=== PATIENT | female | born 2000 | race African-American/Black ===

== ENCOUNTER 2018-10-26 07:39 | Emergency (ER) | payer OTHER ==
[~2018-10-26] VITALS: Ht 165.1 cm; Wt 56.8 kg
[2018-10-26] MEDS ORDERED: PREN29TA4 PO (07:49)
[2018-10-26 08:32] LABS: BASO % 0.5 % (0.0-1.0); EOS # 0.1 10^3/uL (0.0-0.50); EOS % 1.2 % (0.0-3.0); HEMATOCRIT 33.9 % (36.0-47.0); HEMOGLOBIN 11.3 g/dl (12.0-15.5); LYMPH # 1.8 10^3/uL (1.5-6.5); LYMPH % 27.5 % (24.0-44.0); MEAN CORPUSCULAR HEMOGLOBIN 28.4 pg (27.0-33.0); MEAN CORPUSCULAR HGB CONC 33.3 g/dl (32.0-36.5); MEAN CORPUSCULAR VOLUME 85.2 fl (80.0-96.0); MONO # 0.5 10^3/uL (0.0-0.8); MONO % 7.6 % (0.0-5.0); NEUTROPHILS # 4.1 10^3/uL (1.8-7.7); NEUTROPHILS % 62.6 % (36.0-66.0); PLATELET COUNT, AUTOMATED 217 10^3/uL (150-450); RED BLOOD COUNT 3.98 10^6/uL (4.00-5.40); WHITE BLOOD COUNT 6.5 10^3/uL (4.0-10.0)
[2018-10-26 09:14] LABS: ALBUMIN 3.1 GM/DL (3.2-5.2); ALT/SGPT 12 U/L (12-78); BILIRUBIN,DIRECT 0.1 MG/DL (0.0-0.2); BILIRUBIN,TOTAL 0.4 MG/DL (0.2-1.0); BLOOD UREA NITROGEN 6 MG/DL (7-18); CALCIUM LEVEL 8.7 MG/DL (8.5-10.1); CARBON DIOXIDE LEVEL 26 MEQ/L (21-32); CHLORIDE LEVEL 107 MEQ/L (98-107); CREATININE FOR GFR 0.73 MG/DL (0.55-1.30); GLUCOSE, FASTING 80 MG/DL (70-100); HCG, SERUM QUANTITATIVE 64772 MIU/ML; LIPASE 62 U/L (73-393); POTASSIUM SERUM 3.7 MEQ/L (3.5-5.1); SODIUM LEVEL 138 MEQ/L (136-145); TOTAL PROTEIN 6.7 GM/DL (6.4-8.2)
--- NOTE | 2018-10-26 09:59 | REP ---
Limited abdominal ultrasound for free fluid: All four quadrants of the abdomen are evaluated. No free fluid is identified. Impression: No abdominal free fluid is identified by ultrasound Electronically Signed by Maury Miller MD 10/26/2018 09:50 A
--- NOTE | 2018-10-26 10:04 | REP ---
First trimester obstetric ultrasound for trauma: The studies performed transabdominal and endovaginal ultrasound assessment: There is an intrauterine gestational sac with a pole. The heart rate is 163 beats per minute. The pole crown-rump length is 4.1 cm. This corresponds to the a gestation is 11 weeks 0 days/ANTHONY 05/17/2019. Gestational age by LMP is 10 weeks 4 days/ANTHONY of 05/20/2019. There is no subchorionic hematoma. The maternal adnexa and cul-de-sac are unremarkable. There is no free fluid. The cervix measures 5.0 cm length and is closed. Electronically Signed by Maury Miller MD 10/26/2018 09:55 A
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
--- NOTE | 2018-10-26 10:14 | REP ---
Clinical: Trauma. Pain. Technique: AP and lateral views of the lumbosacral spine. Findings: Alignment and lordosis maintained. Vertebral bodies are intact. No acute fracture / compression injury or subluxation. Impression: No acute fracture / compression injury or subluxation. Electronically Signed by Robert Abdalla MD 10/26/2018 10:05 A
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
[2018-10-26 15:28] VITALS: BP 81/48
== END 2018-10-26 15:38 | disposition home or self-care (01) ==
LOC: EDBD 07:39 → M ED 07:39
DX: O9A.219 Injury, poisoning and certain other consequences of external causes complicating pregnancy, unspecified trimester (principal); V49.40XA Driver injured in collision with unspecified motor vehicles in traffic accident, initial encounter; S30.0XXA Contusion of lower back and pelvis, initial encounter; S70.02XA Contusion of left hip, initial encounter; Y92.410 Unspecified street and highway as the place of occurrence of the external cause; Z3A.11 11 weeks gestation of pregnancy

== ENCOUNTER 2018-12-16 23:04 | Emergency (ER) | payer OTHER ==
[~2018-12-16] VITALS: Ht 165.1 cm; Wt 56.8 kg
[~2018-12-16 23:04] MED LIST: PREN29TA4 PO
[2018-12-16 23:05] VITALS: BP 110/62
== END 2018-12-17 02:57 | disposition left against medical advice (07) ==
LOC: M ED 23:04
DX: Z53.21 Procedure and treatment not carried out due to patient leaving prior to being seen by health care provider (principal)

== ENCOUNTER 2019-03-10 15:51 | Emergency (ER) | payer OTHER ==
[~2019-03-10] VITALS: Ht 165.1 cm; Wt 59.1 kg
[2019-03-10 16:43] VITALS: BP 109/57
[2019-03-10] MEDS ORDERED: MAPA500T2 PO (17:24)
== END 2019-03-10 16:48 | disposition admitted as inpatient to this hospital (09) ==
LOC: M ED 15:51
DX: S30.0XXA Contusion of lower back and pelvis, initial encounter (principal); W10.9XXA Fall (on) (from) unspecified stairs and steps, initial encounter; Y92.099 Unspecified place in other non-institutional residence as the place of occurrence of the external cause; Y93.89 Activity, other specified; Y99.9 Unspecified external cause status; O36.8130 Decreased fetal movements, third trimester, not applicable or unspecified; Z3A.30 30 weeks gestation of pregnancy; Z79.899 Other long term (current) drug therapy

== ENCOUNTER 2019-03-10 16:50 | Outpatient (CLI) | payer OTHER ==
[~2019-03-10] VITALS: Ht 165.1 cm; Wt 59.6 kg
[2019-03-10 17:19] VITALS: BP 92/51
[2019-03-10] MEDS ORDERED: MAPA500T2 PO (17:24)
--- NOTE | 2019-03-10 20:24 | IPNPDOC ---
Text Note Date of Service The patient was seen on 03/10/19. 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 she went to ED to be evaluated and found to have coccyx contusion. she was sent to l&d for continued monitoring. she did not She denies cramping/vb. +FM. vitals: normal NAD back: no lesion, nt abd: nd, soft, nt, gravid le: no edema/erythema/tenderness fht: 135/mod oskar/pos accel/no decel. toco: quiet a/p patient is a 18 yo @ 29+6wks gestation s/p fall. monitored for 5 hrs after she feel. no concern at this time. return precautions given. f/u with regular clinic as scheduled. DO carmenza VS,Raman, I+O VS, Fishbone, I+O Vital Signs Date Time Temp Pulse Resp B/P (MAP) Pulse Ox O2 Delivery O2 Flow Rate FiO2 03/10/19 17:19 98.0 80 16 92/51 (65) SOCORRO CLAYTON DO Mar 10, 2019 20:23
== END 2019-03-10 20:20 | disposition home or self-care (01) ==
LOC: M LDO 16:50
PROVIDERS: ATTEND Obstetrics & Gynecology
DX: O99.89 Other specified diseases and conditions complicating pregnancy, childbirth and the puerperium (principal); Z3A.29 29 weeks gestation of pregnancy; W10.8XXA Fall (on) (from) other stairs and steps, initial encounter; Y92.89 Other specified places as the place of occurrence of the external cause; S30.0XXA Contusion of lower back and pelvis, initial encounter; Y93.89 Activity, other specified; Y99.9 Unspecified external cause status; O36.8130 Decreased fetal movements, third trimester, not applicable or unspecified; Z79.899 Other long term (current) drug therapy
CPT/HCPCS: 59025; 85460; 99283; G0378; G0463

== ENCOUNTER 2019-05-07 11:33 | Inpatient (IN) | payer OTHER ==
[2019-05-07] VITALS (15 sets, daily range): BP systolic 113–128; BP diastolic 58–81
[~2019-05-07] VITALS: Ht 165.1 cm; Wt 67.6 kg
[~2019-05-07 11:33] MED LIST changes: +MAPA500T2 PO
[2019-05-07] MEDS ORDERED: LACTATED RINGER'S 1000 ML IV ONE (12:30)
[2019-05-07] MEDS: LR 1,000 ML IV SCH ×2 (12:36→19:05)
[2019-05-07 12:45] LABS: HEMATOCRIT 40.3 % (36.0-47.0); HEMOGLOBIN 12.4 g/dl (12.0-15.5); MEAN CORPUSCULAR HEMOGLOBIN 26.7 pg (27.0-33.0); MEAN CORPUSCULAR HGB CONC 30.8 g/dl (32.0-36.5); MEAN CORPUSCULAR VOLUME 86.9 fl (80.0-96.0); PLATELET COUNT, AUTOMATED 197 10^3/uL (150-450); RED BLOOD COUNT 4.64 10^6/uL (4.00-5.40); WHITE BLOOD COUNT 8.8 10^3/uL (4.0-10.0)
[2019-05-07] MEDS ORDERED: OXYTOCIN DRIP 30 UNITS in IV 1 EA IV SCH (18:15)
[2019-05-07] MEDS ORDERED: FENTANYL 2MCG/ML ROPIVACAINE 0.2% IN 0.9% NACL 100ML IVBAG As Ordered ONE (23:47)
[2019-05-08] VITALS (87 sets, daily range): BP systolic 94–137; BP diastolic 50–82
[2019-05-08] MEDS ORDERED: ePHEDrine SULFATE 25 MG/5 ML(5MG/ML) SYRINGE As Ordered ONE (01:16)
[2019-05-08] MEDS ORDERED: diphenhydrAMINE INJ 50MG/ML VIAL (J1200) IV PRN (01:30)
[2019-05-08] MEDS ORDERED: NALOXONE INJ 0.4 MG/1 ML VIAL (J2310) IV PRN (01:30)
[2019-05-08] MEDS ORDERED: ONDANSETRON 4MG/2ML VIAL (J2405) IV PRN (01:30)
[2019-05-08] MEDS ORDERED: EPIDURAL/PCA KEYS XX PRN (01:30)
[2019-05-08] MEDS ORDERED: ePHEDrine SULFATE 25 MG/5 ML(5MG/ML) SYRINGE IV PRN (01:30)
[2019-05-08] MEDS ORDERED: LACTATED RINGER'S 1000 ML IV PRN (01:30)
[2019-05-08] MEDS ORDERED: REFRIGERATOR IV KEYS XX PRN (01:30)
[2019-05-08] MEDS ORDERED: EPIDURAL COMMENT XX SCH (01:30)
[2019-05-08] MEDS: FENTANYL/ROPIVACAINE/NACL BAG 100 ML EPIDURAL SCH ×3 (08:43→20:32)
--- NOTE | 2019-05-08 11:11 | IPNPDOC ---
Text Note Date of Service The patient was seen on 05/08/19. NOTE Intrapartum Note I assumed care of Melissa at 0730 this morning. In brief, she is a 19yo with SIUP at 38w2d who was admitted by Dr. Soni for bleeding with friable cervix, 80/-2 on admission. She has been augmented with pitocin. Had AROM earlier this morning that was clear. Pitocin at most 8mu but titrated down frequently when tachysystole develops. Vitals wnl. Cat I FHRT with bl 140's, +accels, -decels, mod oskar Ctx q4-5min SCE 80/-1, bladder jackson bulb pushed up to allow head to descend, bloody show noted Will continue to titrate pitocin per protocol Will continue to closely observe Recheck in 2-4hr Safe to proceed Dr. Namrata Hood MD VS,Raman, I+O VS, Raman I+O Laboratory Tests 05/07/19 12:28 Vital Signs Date Time Temp Pulse Resp B/P (MAP) Pulse Ox O2 Delivery O2 Flow Rate FiO2 05/08/19 07:07 75 116/73 (87) 05/08/19 06:07 98.7 18 I&O- Last 24 Hours up to 6 AM 05/08/19 06:00 Intake Total 793 ml Output Total 1000 ml Balance -207 ml Namrata Hood MD May 08, 2019 10:27
--- NOTE | 2019-05-08 11:32 | IPN ---
DATE OF SERVICE: 05/07/2019 at 1800 hours This lady is a 1, para 0, who was admitted with vaginal bleeding at 38+ weeks of gestation. Known to have a friable cervix. She had a moderate amount of bleeding. She has been having contractions about 5-7 minutes apart. The intensity is mild to moderate. There are intermittent painful contractions. We deferred digital examination because of the vaginal bleeding. She has been up and about several times with no evidence of active bleeding to date. Our plan of management is to augment with Pitocin and reevaluate in 2 hours time. We have a category one strip. Blood pressure is 115/66, respirations 18, pulse 84, and temperature is 98.6. We discussed the plan of care with the patient. She expresses understanding. Safe to proceed.
--- NOTE | 2019-05-08 11:34 | HPE ---
DATE OF ADMISSION: 05/07/2019 19-year-old, 1, para 0, last menstrual period (LMP) 05/15/2018, estimated date of confinement (EDC) 05/20/2017 at 38 and 1 weeks of gestation, history of contractions and moderate vaginal bleeding from a very friable cervix as noted previously. Labs are A+, HIV negative, hepatitis negative, RPR negative, rubella immune. Varicella immune. Urine negative. Gonorrhea and chlamydia negative. 1-hour glucose 94. GBS is negative. Blood pressure 92/51, respirations are 20, pulse 80, and temperature 98.0. PHYSICAL EXAMINATION: Moderate amount of bleeding from the vagina either dark or bright red. Symphysis fundus height is 38, vertex presenting. Four quadrant bowel sounds are noted. Digital examination moderate significant amount of bleeding. Cervix is very posterior, 1 cm, very friable cervix was noted, vertex bulging membranes, -3 station. The rest of the examination unremarkable. Normocephalic, atraumatic. Neck full range of motion. Pupils equal and reactive to light. Distal pulses are symmetric. No evidence of deep venous thrombosis (DVT), pulmonary embolism (PE), or superficial phlebitis. Chest is clear bilaterally bases. No wheezes or rhonchi. No costovertebral angle (CVA) tenderness. Abdomen is soft. There is mention of quadrant bowel sounds are noted. She has no rashes, lesions or pruritus. No arthralgia, myalgia. No complaint joint pain. No complaint of cough, wheeze, shortness breath, dyspnea on exertion. No infections. She has no bruising. She is bleeding at present time and has had intermittent bleeding throughout the because of the cervix. She is normocephalic. No incontinency, urgency or frequency. No nausea, vomiting, diarrhea or constipation. No heat or cold insensitivity. No diabetic issues. She has no recorded Pap smear. No evidence of sexually transmitted diseases (STDs). Past medical-surgical is unremarkable. Family history noncontributory. Does not smoke, drink, abuse drugs. . No domestic violence. Good support systems. In consent for vaginal delivery we discussed the fact the baby's possible delivery through the vagina, possibly use a vacuum with forceps if needed, for maternal and indications forceps with vacuum device can assist with vaginal pushing if normal efforts cannot achieve vaginal delivery of their own or emergency for the baby's well-being. Medications may be used to induce or augment labor in order achieve vaginal a delivery, episiotomy may be required to help baby deliver vaginally, you may also require repair of any lacerations or tears of the vagina and the vulva that are caused by delivery, in some cases emergencies can arise that require emergency section were discussed by the provider because they are done related to medical, or maternal indications. section delivery through baby through an incision on the abdomen before they proceed and this may be safer for the baby than continuing labor and only perform if clinically indicated reasons. Risks of vaginal delivery include not limited to bleeding, infection, injury to the vagina, pelvic structures, injury to baby, damage to the uterus, reaction to anesthesia, uterine rupture, risk of hysterectomy for life-threatening bleeding, medications used to augment or induce labor may increase the risk of infection, uterine tachysystole, uterine rupture, heart rate abnormalities, need for emergency section or possible and hysterectomy with hemorrhage. Additional risks for forceps and vacuums include scratches, hematomas of the head, intracranial bleed. In specific to yourself because of such a friable cervix at delivery there may be required extensive repair of the cervix and if possibly not able to control the bleeding. This is a remote possibility of requiring hysterectomy because of intractable bleeding and inability to stop the bleeding because of the extreme friability of the cervix. The patient expressed understanding, had all questions answered, 30 minute discussion, and we are safe to proceed.
--- NOTE | 2019-05-08 13:06 | IPN ---
DATE: 05/07/2019 This is a 19-year-old, 1, who was admitted with active labor and bleeding from her friable cervix. She has an epidural in place. Pitocin is running. Category one strip. Blood pressure 137/68, heart rate is 86 and she is afebrile. On examination, she is 4 cm dilated with a minimal amount of spotting at the present time and bulging membranes. Artificial rupture of membranes (AROM) was done. The baby is occiput transverse (OT). Clear liquid, moderate amount. The patient is getting satisfactory pain relief from her epidural.
--- NOTE | 2019-05-08 13:51 | IPN ---
DATE: 05/07/2019 This is a 19-year-old, 1, who came in [place] at 38 and 1 weeks of gestation with moderate vaginal bleeding secondary to a very friable cervix. She eventually got into active labor, required augmentation with Pitocin and is presently 5-6 cm. Bleeding has subsided. Category one strip at the present time. At 0700, she was 5-6, well applied and Pitocin had to be reduced from 8 to 2 and now we are increasing the Pitocin with the baby with good variability. We anticipate appropriate progress from here. Blood pressure presently is 116/73, respirations 18, pulse 75 and she is afebrile.
[2019-05-08 16:45] LABS: CORD GAS ABE V -3.8; CORD GAS HCO3 V 22.2 MEQ/L; CORD GAS O2 SAT V 64.8 %; CORD GAS PCO2 V 43.6 mmHg; CORD GAS PH V 7.324 UNITS; CORD GAS SBC V 20.6 MEQ/L; CORD GAS TCO2 V 23.5 MEQ/L
[2019-05-08] MEDS ORDERED: OXYTOCIN DRIP 30 UNITS in IV 1 EA IV SCH (17:28)
[2019-05-08] MEDS ORDERED: DIBUCAINE 1% OINTMENT 30GM TOP PRN (17:30)
[2019-05-08] MEDS ORDERED: IBUPROFEN 600 MG TAB PO PRN (17:30)
[2019-05-08] MEDS ORDERED: RHOGAM 300 MCG (1500 IU) INJ (J2790) IM SCH (17:30)
[2019-05-08] MEDS ORDERED: ACETAMINOPHEN TAB 650MG DOSE (2X325MG) PO PRN (17:30)
[2019-05-08] MEDS ORDERED: IBUPROFEN 800 MG TAB PO PRN (17:30)
[2019-05-08] MEDS ORDERED: DOCUSATE SODIUM 100 MG CAP PO PRN (17:30)
[2019-05-08] MEDS ORDERED: MEASLES,MUMPS,RUBELLA VACCINE INJ (MMR-II) (90707) SC SCH (17:30)
--- NOTE | 2019-05-08 18:08 | DNPDOC ---
[facility] Delivery Note Delivery Note DATE OF DELIVERY: 05/08/2019 PREDELIVERY DIAGNOSIS: 38w2d gestation POST DELIVERY DIAGNOSIS: Delivered. PROCEDURE: Spontaneous vaginal delivery TELEHEALTH CASE MANAGER: Dr. Namrata Hood MD ANESTHESIA: epidural ESTIMATED BLOOD LOSS: 300 mL. FINDINGS: 7 pound 3 ounce (male) , Score 8/9, has a left ear abnormality that was not diagnosed prior to delivery DELIVERY SUMMARY: Melissa is a 19yo [id number] s/p uncomplicated at 1628 on 05/08/2019 after undergoing IOL for friable cervix with large blood vessels at 38w2d. She progressed from 2cm to complete with pitocin augmentation, had clear fluid at time of AROM, received an epidural. Labor progressed normally and at C/C/0 she began pushing. With 3 sets of pushes, infant's head delivered OA, restituted HAYLIE (at which time the left ear abnormality was noted). Left anterior shoulder delivered followed by posterior shoulder and corpus. was vigorous with spontaneous cry, placed on sterile drape and cord was clamped x2 and immediately cut by FOB, then was taken to warmer for further evaluation. was taken from there to the NICU to be evaluated by Dr. Deleon. Venous cord gas obtained pHv 7.324, BE -3.8 (unable to obtain sufficient arterial cord gas). Terminal meconium noted. With traction on the umbilical cord and uterine massage, placenta delivered spontaneously and intact with 3 vessel centrally inserted cord. More uterine massage was performed and fundus was then firm at u- 2cm. Inspection of perineum and vagina revealed 2mll and superficial labial abrasions all repaired with 3-0 vicryl and 4-0 vicryl in routine fashion with total reapproximation and hemostasis. There was a small 0.5cm piece of tissue on the upper inner aspect of the labia minora on the left that was previously adhesed to the other labia (per patient and her ), which tore itself free during the delivery. I excised the remnant and sent to pathology, then placed a figure of 8 stitch at that site with 4-0 vicryl with hemostasis noted. All counts were correct x2. Dr. Deleon met with the patient and her just before I left the room, and stated that will go to [place] for further eval, likely to receive MRI. If patient is stable in 6 hours, she is ok to discharge to drive to [place] to be with her infant which we discussed. MD Erwin Reed Katrina D MD May 08, 2019 18:08
[2019-05-08] MEDS ORDERED: METHYLERGONOVINE MALEATE 0.2 MG/ML VIAL (J2210) As Ordered ONE (20:19)
[2019-05-08] MEDS ORDERED: METHYLERGONOVINE MALEATE 0.2 MG/ML VIAL (J2210) IM ONE (20:30)
[2019-05-08] MEDS: METHYLERGONOVINE MALEATE 0.2 MG TAB PO SCH (22:40)
[2019-05-09] MEDS: ACETAMINOPHEN 500 MG TAB PO PRN ×2 (00:13→09:14)
[2019-05-09] MEDS: METHYLERGONOVINE MALEATE 0.2 MG TAB PO SCH ×2 (04:23→09:10)
[2019-05-09 06:38] VITALS: BP 102/52
[2019-05-09] MEDS ORDERED: PRENATAL VITAMINS CHEWABLE TABLET PO SCH (09:00)
--- NOTE | 2019-05-09 09:34 | IPNPDOC ---
Progress Note Date of Service: May 09, 2019 Day#: 1 Progress Note PPD 1 SUBJECT: Melissa is a 19yo [id number] s/p uncomplicated at 1628 on 05/08/2019 after undergoing IOL for friable cervix with large blood vessels at 38w2d, doing well day #1. Infant was born with an unanticipated abnormality of the left side of the head/ear, and was taken to [place] after delivery. Patient's mood is ok, the couple has not received an update on baby as of this morning but plan to go to [place] after discharge this morning. She has been ambulating, voiding spontaneously without issue and tolerating regular diet. Would like to breast feed, requests new breast pump Rx. Reports lochia is like a normal period. No f/c/n/v/CP/SOB. OBJECTIVE: VITAL SIGNS: Within normal limits, afebrile. Heart rate: Regular rate and rhythm, no murmurs, rubs or gallops. Abdomen: Fundus firm at U-2. Soft, NTTP. Extremities: no pain with palpation of calves ASSESSMENT: Melissa is a 19yo [id number] s/p uncomplicated at 1628 on 05/08/2019 after undergoing IOL for friable cervix with large blood vessels at 38w2d, doing well day #1. Vitals within normal limits, afebrile, hemodynamically stable with no evidence of infection. is at [place] and couple desires discharge to go to be with there. PLAN: 1. Discharge this morning 2. Tylenol and Motrin for pain. 3. Encouraged breast feeding and ambulation. 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 Undecided on contraception, discussed options and will re-discuss at 6wk visit 5. Routine PP visit in 6 weeks in clinic. 6. Discussed return precautions at length. 7. Vaginal rest 6 weeks and no heavy lifting Dr. Namrata Hood MD VS, I&O, 24H, Fishbone Vital Signs/I&O Vital Signs Date Time Temp Pulse Resp B/P (MAP) Pulse Ox O2 Delivery O2 Flow Rate FiO2 05/09/19 06:38 98.1 89 14 102/52 (69) 98 Room Air I&O- Last 24 Hours up to 6 AM 05/09/19 06:00 Intake Total 2360.2 ml Output Total 1502 ml Balance 858.2 ml Laboratory Data 24H LABS Laboratory Tests 2 05/08/19 16:39: Cord Venous Blood pH 7.324, Cord Venous Blood PCO2 43.6, Cord Venous Blood PO2 28.0, Cord Venous Blood HCO3 22.2, Cord Venous Blood Total CO2 23.5, Cord Venous Base Excess (Actual) -3.8, Cord Venous Base Excess (Standard) 20.6, Cord Venous Blood Oxygen Saturation 64.8 Namrata Hood MD May 09, 2019 09:34
[2019-05-09] MEDS ORDERED: IBUP80TA PO (09:37)
[2019-05-09] MEDS ORDERED: PRENCHW PO (09:37)
[2019-05-09] MEDS ORDERED: ACET-683 PO (09:37)
--- NOTE | 2019-05-09 09:41 | DS.PDOC ---
Discharge Summary General Date of Admission May 07, 2019 at 11:58 Date of Discharge May 09, 2019 Attending Physician: Namrata Hood MD Discharge Summary PROCEDURES PERFORMED DURING STAY: spontaneous vaginal delivery ADMITTING DIAGNOSES: 1. Induction of labor for large blood vessels on friable cervix with vaginal bleeding at term, 38w2d DISCHARGE DIAGNOSES: 1. Induction of labor for large blood vessels on friable cervix with vaginal bleeding at term, 38w2d 2. Delivered COMPLICATIONS/CHIEF COMPLAINT: vaginal bleeding at term HISTORY OF PRESENT ILLNESS/HOSPITAL COURSE: Melissa is a 19yo [id number] s/p uncomplicated at 1628 on 05/08/2019 after undergoing IOL for friable cervix with large blood vessels at 38w2d, doing well day #1. She has thus far had a benign course. At time of discharge, vitals were within normal limits, she was afebrile, hemodynamically stable with no evidence of infection. was born with an unanticipated abnormality of the left side of the head/ear, and was taken to [place] after delivery. is at [place] and couple desires discharge to go to be with there. DISCHARGE MEDICATIONS: Please see below. ALLERGIES: Please see below. PHYSICAL EXAMINATION ON DISCHARGE: VITAL SIGNS: Within normal limits, afebrile. Heart rate: Regular rate and rhythm, no murmurs, rubs or gallops. Abdomen: Fundus firm at U-2. Soft, NTTP. Extremities: no pain with palpation of calves DIET: regular DISPOSITION: Home DISCHARGE INSTRUCTIONS: 1. Discharge this morning 2. Tylenol and Motrin for pain. 3. Encouraged breast feeding and ambulation. Clinic staff will deliver her a new breast pump Rx form prior to her discharge so that she can hopefully pick and shovel man a breast pump today 4. Undecided on contraception, discussed options and will re-discuss at 6wk visit 5. Routine PP visit in 6 weeks in clinic. 6. Discussed return precautions at length. 7. Vaginal rest 6 weeks and no heavy lifting DISCHARGE CONDITION: Stable TIME SPENT ON DISCHARGE: Greater than [address] Namrata Hood MD Vital Signs/I&Os Vital Signs Date Time Temp Pulse Resp B/P (MAP) Pulse Ox O2 Delivery O2 Flow Rate FiO2 05/09/19 06:38 98.1 89 14 102/52 (69) 98 Room Air I&O- Last 24 Hours up to 6 AM 05/09/19 06:00 Intake Total 2360.2 ml Output Total 1502 ml Balance 858.2 ml Laboratory Data Labs 24H Laboratory Tests 2 05/08/19 16:39: Cord Venous Blood pH 7.324, Cord Venous Blood PCO2 43.6, Cord Venous Blood PO2 28.0, Cord Venous Blood HCO3 22.2, Cord Venous Blood Total CO2 23.5, Cord Venous Base Excess (Actual) -3.8, Cord Venous Base Excess (Standard) 20.6, Cord Venous Blood Oxygen Saturation 64.8 Discharge Medications Scheduled Pnv No.118/Iron Fumarate/FA ( 19 Chewable Tablet) 1 Each Tab.chew, 1 TAB PO DAILY Scheduled PRN Acetaminophen (Acetaminophen) 500 Mg Tablet, 1,000 MG PO Q6HP PRN for PAIN LEVEL 6-10 Ibuprofen (Ibuprofen) 800 Mg Tablet, 800 MG PO Q8HP PRN for PAIN LEVEL 6-10 Allergies Coded Allergies: No Known Allergies (Unverified , 10/26/18) Namrata Hood MD May 09, 2019 09:41
== END 2019-05-09 10:05 | disposition home or self-care (01) | DRG 807 ==
LOC: M LDO 11:33 → M LDI 11:58 → M OBS 05-08 21:05
PROVIDERS: ADMIT Obstetrics & Gynecology; ATTEND Obstetrics & Gynecology
PROC: 3E033VJ Introduction of Other Hormone into Peripheral Vein, Percutaneous Approach (ICD-10-PCS; 2019-05-07)
PROC: 10E0XZZ Delivery of Products of Conception, External Approach (ICD-10-PCS; principal; 2019-05-08)
PROC: 10907ZC Drainage of Amniotic Fluid, Therapeutic from Products of Conception, Via Natural or Artificial Opening (ICD-10-PCS; 2019-05-08)
DX: O34.43 Maternal care for other abnormalities of cervix, third trimester (principal); Z37.0 Single live birth; Z3A.38 38 weeks gestation of pregnancy; N93.8 Other specified abnormal uterine and vaginal bleeding; O26.853 Spotting complicating pregnancy, third trimester; O26.899 Other specified pregnancy related conditions, unspecified trimester

== ENCOUNTER → 2019-12-08 | Emergency (ER) | payer OTHER ==
[~2019-12-08] MED LIST changes: +ACET-683 PO; +IBUP80TA PO; +PRENCHW PO
== END | disposition left against medical advice (07) ==
LOC: M ED 22:42
DX: Z53.21 Procedure and treatment not carried out due to patient leaving prior to being seen by health care provider (principal)